=== PATIENT | female | born 1955 | race Caucasian/White ===

== ENCOUNTER 2020-06-10 12:48 | Emergency (ER) | payer OTHER ==
[~2020-06-10] VITALS: Ht 160 cm; Wt 58.1 kg
[2020-06-10 12:48] VITALS: BP_SYST 135
[2020-06-10] MEDS ORDERED: NAPR-688 PO (15:30)
[2020-06-10] MEDS ORDERED: TRAM100T28 PO (15:50)
[2020-06-10 15:59] VITALS: BP_SYST 135
== END 2020-06-10 15:59 | disposition home or self-care (01) ==
LOC: SED 12:48
DX: M54.12 Radiculopathy, cervical region (principal)
CPT/HCPCS: 93971; 99284